=== PATIENT | female | born 1955 ===

== ENCOUNTER 2023-02-26 16:46 | Inpatient (IN) | payer OTHER ==
[~2023-02-26] VITALS: Ht 165.1 cm; Wt 68.9 kg
[2023-02-27] MEDS ORDERED: SIMVASTATIN5 MG PO (11:26)
[2023-02-27] MEDS ORDERED: ZESTRIL10 M1 PO (11:27)
[2023-02-27] MEDS ORDERED: GLIMEPIRIDE4 M1 PO (11:27)
[2023-02-27] MEDS ORDERED: HORIZANT300 MG PO (11:27)
[2023-02-27] MEDS ORDERED: HUMULIN N100 UNIT/2 IM (11:28)
[2023-02-27] MEDS ORDERED: JARDIANCE25 MG PO (11:30)
[2023-02-27] MEDS ORDERED: [UNRECOGNIZED DRUG - OTHER] PO (11:30)
[2023-02-27] MEDS ORDERED: ZEGERID 40 MG1 EACH PO (11:30)
[2023-03-03] MEDS ORDERED: GABAPENTIN300 M2 (13:40)
[2023-03-04] MEDS ORDERED: OMEPRAZOLE40 MG (10:45)
[2023-03-04] MEDS ORDERED: TRADJENTA5 MG (10:45)
[2023-03-06] MEDS ORDERED: AMOX1TAB5 PO (13:05)
[2023-03-06] MEDS ORDERED: TRAM1TAB98 PO (13:05)
[2023-03-06] MEDS ORDERED: PEPCID AC20 MG PO (13:05)
== END 2023-03-06 14:57 | disposition home or self-care (01) | DRG 331 ==
LOC: SURG 03-03 09:55 → O/R 03-03 09:55 → SURG 03-03 10:30
PROVIDERS: ADMIT Surgery; ATTEND Surgery
PROC: 07BB4ZZ Excision of Mesenteric Lymphatic, Percutaneous Endoscopic Approach (ICD-10-PCS; 2023-03-03)
PROC: 0DTG4ZZ Resection of Left Large Intestine, Percutaneous Endoscopic Approach (ICD-10-PCS; principal; 2023-03-03 14:45)
DX: D12.4 Benign neoplasm of descending colon (principal); D37.4 Neoplasm of uncertain behavior of colon